=== PATIENT | female | born 1975 | race Caucasian/White ===

== ENCOUNTER → 2020-08-13 08:05 | Outpatient (BNVA) | payer BC, SELFPAY | PROVIDERS: Family Provider Family Medicine; PCP Family Medicine; Referring Provider Dermatology; Visit Provider Dermatology | DX: D48.5 Neoplasm of uncertain behavior of skin (principal); L82.1 Other seborrheic keratosis; R20.2 Paresthesia of skin; B07.8 Other viral warts; D48.9 Neoplasm of uncertain behavior, unspecified | CPT/HCPCS: 11102; 17110; 88304; 99203 ==

== ENCOUNTER → 2021-03-07 08:43 | Outpatient (BNVA) | payer BC, SELFPAY | PROVIDERS: Family Provider Family Medicine; PCP Family Medicine; Visit Provider Surgery | DX: E66.01 Morbid (severe) obesity due to excess calories (principal); Z98.84 Bariatric surgery status | CPT/HCPCS: 80053; 80061; 82306; 82607; 82728; 84134; 85025 ==

== ENCOUNTER → 2021-03-10 08:48 | Outpatient (BNVA) | payer BC, SELFPAY | PROVIDERS: Family Provider Family Medicine; PCP Family Medicine; Visit Provider Surgery | DX: E66.01 Morbid (severe) obesity due to excess calories (principal); Z98.84 Bariatric surgery status | CPT/HCPCS: 84425 ==

== ENCOUNTER → 2021-09-25 08:43 | Outpatient (BNVA) | payer BC, SELFPAY | PROVIDERS: Family Provider Family Medicine; PCP Family Medicine; Visit Provider Surgery | DX: E53.8 Deficiency of other specified B group vitamins (principal); E55.9 Vitamin D deficiency, unspecified; Z98.84 Bariatric surgery status | CPT/HCPCS: 80053; 80061; 82306; 82607; 82728; 84134; 85025 ==

== ENCOUNTER → 2022-02-09 08:54 | Outpatient (BNVA) | payer BC, SELFPAY | PROVIDERS: Family Provider Family Medicine; PCP Family Medicine; Visit Provider Nurse Practitioner Family | DX: R53.83 Other fatigue (principal); N91.2 Amenorrhea, unspecified; F41.9 Anxiety disorder, unspecified; F32.A Depression, unspecified | CPT/HCPCS: 80053; 83001; 84443; 85025 ==

== ENCOUNTER → 2022-03-25 09:54 | Outpatient (BNVA) | payer BC, SELFPAY | PROVIDERS: Family Provider Family Medicine; PCP Family Medicine; Visit Provider Nurse Practitioner Family | DX: Z98.84 Bariatric surgery status (principal) | CPT/HCPCS: 80053; 80061; 82306; 82607; 82728; 84134; 85025 ==

== ENCOUNTER 2022-04-18 21:19 | Emergency (ER) | payer BC, SELFPAY ==
[2022-04-18 21:20] VITALS: BP 133/95; PULSE 83; RESP 18; TEMP 36.8; O2SAT 97; BMI 19.1
--- NOTE | 2022-04-18 21:21 | ED_ITS ---
HPI - Chest Pain General: Chief Complaint: Chest Pain Stated Complaint: cp Time Seen by Provider: 04/18/22 21:20 History of Present Illness: Ms. Aguilar is a 46-year-old lady without significant past medical history presents to the emergency department due to chest discomfort. She reports onset of symptoms at rest after she ate a meal. She endorses initially epigastric pain that quickly radiated to pressure around the chest. Mild associated shortness of breath and nausea without vomiting. Also mild associated lightheadedness. Symptoms improved with nitroglycerin and patient was administered aspirin by EMS. Denies history of similar. No history of tobaccoism, hypertension, hyperlipidemia, no early family history of coronary artery disease. No history of bleeding or clotting disorder. No other specific changes in health, exacerbating, or alleviating factors identified. Onset (ago): hour(s) Prior episodes: No Onset: during rest Pain location: substernal Severity: moderate Quality: tightness Associated symptoms: Reports dyspnea and nausea Review of Systems General: Reports: 10 or more systems reviewed and unremarkable except in HPI and below Resp: Reports: dyspnea GI: Reports: nausea PFSH ED PFSH: Medical History Chronic fatigue and malaise Fibromyalgia History of ectopic History of hypothyroidism Menorrhagia with regular cycle Vitamin B12 deficiency Vitamin D deficiency Surgical History History of section (08/10/14) Low transverse section. Performed by Dr. Pedro Stack at [facility] in [place], [place]. History of reversal of tubal ligation (07/2001) Hx of gastric bypass August 2020 Hx of tubal ligation (12/17/99) Status post hysteroscopic polypectomy (03/06/11) Hysteroscopy, D&C, Polypectomy Performed by Dr. Pedro Stack at [facility] in [place], [place]. Family History Mother Hypercholesteremia Family/Other No problems noted. Denies family history of Colon cancer Ovarian cancer Diabetes Breast cancer Hypertension Uterine cancer Thyroid disease Stroke Social History Smoking and tobacco status: former smoker Second hand smoke exposure: No Smoking risk assessment/counseling performed?: No Alcohol intake: never Desire information about alcohol rehabilitation?: No Counseling given: No Desire information about substance/drug rehabilitation?: No Counseling given: No Adopted: No Caregiver/support person: No Lives independently: Yes History of recent travel: No Physical Exam Const: COMMON NORMALS: alert GENERAL APPEARANCE: cooperative and well developed HENMT: COMMON NORMALS: normocephalic and atraumatic HEAD & SCALP: normocephalic and atraumatic Eye: COMMON NORMALS: conjunctivae normal CONJUNCTIVA: Yes conjunctivae normal SCLERA: sclerae normal Neck/C-Spine: COMMON NORMALS: supple GENERAL: Yes trachea midline Resp: COMMON NORMALS: normal respiratory effort, No use of accessory muscles and clear to auscultation bilaterally EFFORT & INSPECTION: Yes able to speak in complete sentences AUSCULTATION: clear to auscultation bilaterally Cardio: COMMON NORMALS: regular rate and regular rhythm RATE: regular rate RHYTHM: regular rhythm GI: COMMON NORMALS: Soft to palpation PALPATION: Yes Soft to palpation and No Tenderness to palpation present (GI) PERCUSSION: normal to percussion Extremity: GENERAL: Yes normal exam except as noted and No edema Neuro: COMMON NORMALS: moves all extremities SENSORIUM/ORIENTATION: Yes alert and No Orientation impaired Psych: COMMON NORMALS: mental status grossly normal and Normal thought process present THOUGHT PROCESS: Normal thought process present Course ED course: - Patient was seen and evaluated by me at bedside - Patient placed on cardiac monitors, IV access obtained - Initial evaluation notable for exam as above - Labs and xrays personally interpreted by me. EKG showing sinus rhythm with no STEMI. -Patient received aspirin prior to arrival. - Labs notable for no leukocytosis, normal hemoglobin. Metabolic panel without acute derangement to explain symptoms. Delta troponin and initial troponin negative. - Imaging notable for no lobar consolidation or pneumothorax - Low risk by heart score. PERC and Wells negative. - Upon serial reexamination after treatment the patient was improved - Based on patient history, evaluation, and testing as interpreted the most likely cause of the patient's condition is chest pain of uncertain etiology - The results of ED evaluation were discussed with the patient including prescriptions and/or symptomatic cares (if applicable) including appropriate and responsible use, followup plan, and return precautions. The patient verbalized understanding and felt safe for discharge. - Patient discharged in satisfactory condition. Note: Click bubbles or prepopulated rodriguez in note writing are used for assistance with data collection and billing and are inherently more limited than narrative and other text portions of this note. Please use narrative for additional clinical history and defer to narrative/free test for any case of contradictory information. If information appears in only free text or click bubble it should be considered present or absent as reported. Please contact note loan underwriter for clarifications of clinical information or contradictory information. MDM is a brief summary, contradictory or erroneous seeming information should be clarified and full note should be reviewed. Vital Signs: Vital signs: Vital Signs Temperature 98.3 F 04/19/22 00:26 Pulse Rate 73 04/19/22 00:26 Respiratory Rate 17 04/19/22 00:26 Blood Pressure 110/69 04/19/22 00:26 Pulse Oximetry 98 04/19/22 00:26 MDM - Chest Pain Medical Decision Making 46-year-old lady without significant cardiac risk factors presenting to the emergency department due to chest pain. Low risk by heart score. Negative ED evaluation. Satisfactory for outpatient management. Medical Records I reviewed the patient's medical records. Lab Data I reviewed the patient's lab results. : 04/18/22 21:42 04/18/22 21:42 Radiology Impressions Chest X-Ray 04/18/22 21:58 IMPRESSION: No acute findings. Laboratory Results WBC 4.7 10^3/uL (4.0-10.0) 04/18/22 21:42 RBC 4.39 10^6/uL (4.1-5.3) 04/18/22 21:42 Hgb 14.1 g/dL (11.5-15.3) 04/18/22 21:42 Hct 40.2 % (37.0-47.0) 04/18/22 21:42 MCV 91.6 fl (81-99) 04/18/22 21:42 MCH 32.1 pg (28.0-34.0) 04/18/22 21:42 MCHC 35.1 g/dL (30.0-36.0) 04/18/22 21:42 RDW 11.9 % (12.1-15.1) L 04/18/22 21:42 Plt Count 222 10^3/cmm (130-400) 04/18/22 21:42 MPV 10.1 fL (7.4-10.4) 04/18/22 21:42 Neut % (Auto) 67.1 % 04/18/22 21:42 Lymph % (Auto) 23.2 % 04/18/22 21:42 [place] % (Auto) 7.6 % 04/18/22 21:42 Eos % (Auto) 1.3 % 04/18/22 21:42 Baso % (Auto) 0.6 % 04/18/22 21:42 Neut # (Auto) 3.18 10^3/uL (1.8-7.7) 04/18/22 21:42 Lymph # (Auto) 1.1 10^3/uL (0.8-4.8) 04/18/22 21:42 [place] # (Auto) 0.4 10^3/uL (0.2-0.9) 04/18/22 21:42 Eos # (Auto) 0.1 10^3/uL (0.0-0.8) 04/18/22 21:42 Baso # (Auto) 0.0 10^3/uL (0.0-0.1) 04/18/22 21:42 Nucleated RBC % (auto) 0 % 04/18/22 21:42 Nucleated RBCs # 0.0 /100WBC 04/18/22 21:42 Sodium 137 mmol/L (136-145) 04/18/22 21:42 Potassium 3.4 mmol/L (3.5-5.1) L 04/18/22 21:42 Chloride 102 mmol/L (98-107) 04/18/22 21:42 Carbon Dioxide 23 mmol/L (22-29) 04/18/22 21:42 Anion Gap 15.4 (5-19) 04/18/22 21:42 BUN 15 mg/dL (6-20) 04/18/22 21:42 Creatinine 0.5 mg/dL (0.5-0.9) 04/18/22 21:42 GFR Calculation 133.4 mL/min (90-130) H 04/18/22 21:42 Glucose 113 mg/dL (65-115) 04/18/22 21:42 Calculated Osmolality 286 mOsm/kg (285-295) 04/18/22 21:42 Calcium 9.2 mg/dL (8.5-10.5) 04/18/22 21:42 Total Bilirubin 0.5 mg/dL (0.15-1.2) 04/18/22 21:42 AST 13 U/L (0-32) 04/18/22 21:42 ALT 13 U/L (0-33) 04/18/22 21:42 Alkaline Phosphatase 53 IU/L (35-105) 04/18/22 21:42 Troponin T Baseline 6 ng/L (0-10) 04/18/22 21:42 Troponin T 120 Minute 6.00 ng/L (0-10) 04/18/22 23:27 Delta Troponin T Not Reportable 04/18/22 23:27 Total Protein 7.1 g/dL (6.6-8.7) 04/18/22 21:42 Albumin 4.5 g/dL (3.5-5.2) 04/18/22 21:42 Globulin 2.6 g/dL (1.3-4.6) 04/18/22 21:42 Lipase 14 U/L (13-60) 04/18/22 21:42 Discharge Plan Discharge Patient Disposition: Home Clinical Impression: Chest pain Condition: Stable Prescriptions: No Action multivitamin Tablet 1 tab PO DAILY 0RF calcium citrate 1,000 mg tablet 1,000 mg PO DAILY 0RF cyanocobalamin (vitamin B-12) 1,000 mcg capsule 1,000 mcg PO DAILY 0RF topiramate [Topamax] 100 mg tablet 100 mg PO BID Qty: 60 5RF rizatriptan [Maxalt] 10 mg tablet See Rx Instructions PO .COMPLEX Qty: 10 5RF Rx Instructions: take 1 tab at onset of headache; if no relief may repeat 1 tab after at least 2 hrs; max = 3 tabs/24 hr PO escitalopram oxalate [Lexapro] 10 mg tablet 10 mg PO DAILY Qty: 30 5RF bupropion HCl 300 mg tablet extended release 24 hr 300 mg PO QAM Qty: 30 5RF Discharge Orders: Discharge ED (Routine); Ordered 04/19/22 Ordered By: Perez Zelaya Referrals: Nguyen Schofield MD [Physician] - Discharge Diet: Usual diet Discharge Activity: Resume usual activity Patient Instructions: Chest Pain (ED) Activity Restrictions/Additional Instructions: Thank you for visiting the emergency department. You were seen and evaluated for chest pain. The exact cause of your symptoms is unclear. As discussed you are low risk by heart score and therefore outpatient follow-up is appropriate. I will message case management for follow-up with cardiology for consideration of additional testing. Please return to the emergency department for worsening symptoms or anything else that you are concerned about and feel needs emergency department evaluation. Coding Level of Care Code ED Heading Machine Operator for Bee Fwd Exam Comprehensive
--- NOTE | 2022-04-18 21:58 | XRR_ITS ---
PROCEDURE INFORMATION: Exam: XR Chest Exam date and time: 04/18/2022 10:21 PM Age: 46 years old Clinical indication: Pain; Dyspnea; Chest pressure; Additional info: Chest pain TECHNIQUE: Imaging protocol: XR of the chest. Views: 1 view. COMPARISON: CT Cervical Spine wo* [id number] 06/13/2018 10:46 AM FINDINGS: Lungs: Unremarkable. No consolidation. Pleural spaces: Unremarkable. No pleural effusion. No pneumothorax. Heart/Mediastinum: Unremarkable. No cardiomegaly. Bones/joints: Unremarkable. XR/XR chest 1V portable [id number] IMPRESSION: No acute findings.
--- NOTE | 2022-04-18 21:58 | ECG_ITS ---
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 Measurements Intervals [place] Rate: 82 P: 69 GA: 150 QRS: 44 QRSD: 78 T: 49 QT: 384 QTc: 451 Interpretive Statements SINUS RHYTHM POSSIBLE LEFT ATRIAL ENLARGEMENT [-0.1mV P-WAVE IN V1/V2] No previous ECG available for comparison Electronically Signed On 04-19-2022 12:12:45 CDT by Aryan Vega M.D. [email or web address] [email or web address].Segmint/store/[id number] f
[2022-04-18 22:00] VITALS: BP 119/80; PULSE 67; RESP 17; O2SAT 98
[2022-04-18 22:06] LABS: Basophils % 0.6 %; Eosinophils # 0.1 10^3/uL (0.0-0.8); Eosinophils % 1.3 %; Hematocrit 40.2 % (37.0-47.0); Hemoglobin 14.1 g/dL (11.5-15.3); Lymphocytes # 1.1 10^3/uL (0.8-4.8); Lymphocytes % 23.2 %; Mean Corpuscular HGB Conc 35.1 g/dL (30.0-36.0); Mean Corpuscular Hemoglobin 32.1 pg (28.0-34.0); Mean Corpuscular Volume 91.6 fl (81-99); Mean Platelet Volume 10.1 fL (7.4-10.4); Monocytes # 0.4 10^3/uL (0.2-0.9); Monocytes % 7.6 %; Neutrophils # 3.18 10^3/uL (1.8-7.7); Neutrophils % 67.1 %; Nucleated Red Blood Cells % 0 %; Platelet Count 222 10^3/cmm (130-400); Red Blood Count 4.39 10^6/uL (4.1-5.3); Red Cell Distribution Width 11.9 % (12.1-15.1); White Blood Count 4.7 10^3/uL (4.0-10.0)
[2022-04-18 22:17] LABS: Alanine Aminotransferase 13 U/L (0-33); Albumin Level 4.5 g/dL (3.5-5.2); Alkaline Phosphatase 53 IU/L (35-105); Anion Gap 15.4 (5-19); Aspartate Amino Transferase 13 U/L (0-32); Blood Urea Nitrogen 15 mg/dL (6-20); Calcium 9.2 mg/dL (8.5-10.5); Carbon Dioxide 23 mmol/L (22-29); Chloride 102 mmol/L (98-107); Globulin 2.6 g/dL (1.3-4.6); Glomerular Filtration Rate 133.4 mL/min (90-130); Glucose 113 mg/dL (65-115); Lipase 14 U/L (13-60); Osmolality Calculated 286 mOsm/kg (285-295); Potassium 3.4 mmol/L (3.5-5.1); Sodium 137 mmol/L (136-145); Total Bilirubin 0.5 mg/dL (0.15-1.2); Total Protein 7.1 g/dL (6.6-8.7)
[2022-04-18 22:18] LABS: Troponin(5th) Baseline 6 ng/L (0-10)
--- NOTE | 2022-04-18 23:58 | ECG_ITS ---
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 Measurements Intervals [place] Rate: 71 P: 79 MA: 149 QRS: 46 QRSD: 77 T: 40 QT: 415 QTc: 452 Interpretive Statements SINUS RHYTHM POSSIBLE LEFT ATRIAL ENLARGEMENT [-0.1mV P-WAVE IN V1/V2] Compared to ECG 04/18/2022 21:27:37 No significant changes Electronically Signed On 04-19-2022 12:14:15 CDT by Aryan Vega M.D. [id number]
[2022-04-19] VITALS: BP 110/69; PULSE 73; RESP 17; TEMP 36.8; O2SAT 98
[2022-04-19 00:26] VITALS: BP 110/69; PULSE 73; RESP 17; TEMP 36.8; O2SAT 98
--- NOTE | 2022-04-23 06:44 | DCPLANNER ---
Addendum entered by Leandra Graham 07/02/22 11:07: Patient had a follow up appointment scheduled with [facility] - patient did attend appointment. Addendum entered by Leandra Graham 04/26/22 09:37: Patient has a follow up appointment scheduled for Wednesday, June 22, 2022 at 2:[address] Vega. Clinic will call patient with appointment information. Original Note: performing arts road manager had message to schedule a followup appointment for patient with cardiology. performing arts road manager sent patients information to the front office staff at [facility]. Patients information will be printed and reviewed. Clinic will call patient with appointment information.
== END 2022-04-19 00:28 | disposition home or self-care (01) ==
PROVIDERS: Emergency Provider Emergency Medicine
DX: R07.9 Chest pain, unspecified (principal); Z87.891 Personal history of nicotine dependence
CPT/HCPCS: 71045; 80053; 83690; 84484; 85025; 93005; 99284

== ENCOUNTER 2022-07-30 01:02 | Emergency (ER) | payer BC, SELFPAY ==
[2022-07-30] VITALS (10 sets, daily range): BP systolic 116–151; BP diastolic 78–89; PULSE 91–110; RESP 13–18; TEMP 36.6–37.1; O2SAT 93–100
--- NOTE | 2022-07-30 01:11 | CTR_ITS ---
PROCEDURE INFORMATION: Exam: CT Abdomen And Pelvis With Contrast Exam date and time: 07/30/2022 1:26 AM Age: 46 years old Clinical indication: Abdominal pain; Localized; Right upper quadrant (ruq); Prior surgery; Surgery type: Gastric bypass. Tubal ligation. Csection; Patient HX: C/O ruq/epigastric pain; Additional info: Abd pain TECHNIQUE: Imaging protocol: Computed tomography of the abdomen and pelvis with contrast. Radiation optimization: All CT scans at this facility use at least one of these dose optimization techniques: automated exposure control; mA and/or kV adjustment per patient size (includes targeted exams where dose is matched to clinical indication); or iterative reconstruction. Contrast material: OMNI 350; Contrast volume: 80 ml; Contrast route: INTRAVENOUS (IV); COMPARISON: ES Gynecology Scope Images 04/05/2018 5:45 AM RADIATION DOSE METRICS: Total DLP (mGy-cm): 329.21 FINDINGS: Lungs: No consolidation in the visualized lung bases. Liver: The liver is enlarged, measuring 23.6 cm in length at the mid axillary line. There is periportal edema. Gallbladder and bile ducts: There is a hydropic, distended gallbladder measuring 11.5 cm in the craniocaudal plane by 3.9 cm transversely by 4.7 cm in anteroposterior dimension. The common bile duct is mildly distended to 8.5 mm and contains a proximal filling defect, proximally 6 mm in diameter (series 3, images 28 and 47; series 5, image 17). There is pericholecystic fluid. There are faintly visualized stones near the gallbladder neck (series 3, image 51). Pancreas: Normal in size and homogeneous enhancement. No ductal dilation. Spleen: Normal. No splenomegaly. Adrenal glands: Normal. No mass. Kidneys and ureters: There is no hydronephrosis. No renal or obstructing ureteral calculi. Stomach and bowel: There has been gastric bypass surgery. There is no evidence of small bowel or colonic obstruction. There is moderate fecal burden in the ascending and transverse colon. Appendix: The appendix is not identified. Intraperitoneal space: No free air. No significant fluid collection. Vasculature: There is a prominent left gonadal vein. Lymph nodes: No enlarged retroperitoneal or mesenteric lymph nodes. Urinary bladder: The urinary bladder is mostly decompressed and is clear calcific opacities. Reproductive: Unremarkable as visualized. Bones/joints: At L5-S1, there is degenerative disc disease and vacuum disc. There is mild broad-based disc protrusion. No severe spinal stenosis. Soft tissues: Normal. CT/CT abdomen pelvis w con* [id number] IMPRESSION: 1. Cholelithiasis and choledocholithiasis with mild dilatation of the common bile duct. 2. There is a small amount of pericholecystic fluid that may or may not reflect acute cholecystitis. Correlation with ultrasound may be helpful if clinically indicated. Choledocholithiasis is better visualized by MRCP, if clinically indicated. 3. Hepatomegaly and periportal edema as may be seen in inflammatory processes of the liver or in aggressive hydration of the patient. 4. Status post gastric bypass surgery. 5. Prominent left gonadal vein. This may be seen in pelvic congestion syndrome. Clinical correlation is necessary. 6. Additional non emergent findings as above. Findings were discussed with PAUL ZARAGOZA at 07/30/2022 3:31 AM CDT.
--- NOTE | 2022-07-30 01:13 | W.ED.ABDPA2 ---
Documented by User: Paul Zaragoza MD 07/30/22 05:02 HPI - Abdominal Pain General: Chief Complaint: Abdominal Pain Stated Complaint: ABD Pain Time Seen by Provider: 07/30/22 01:04 Source: patient Mode of arrival: ambulatory Limitations: no limitations History of Present Illness: 46-year-old female has a history of gastric bypass surgery 2 years ago states that starting yesterday she is having right upper quadrant abdominal pain is worsened throughout the day states it was got severe tonight was a 7 out of 10 she denies any worsening improving factors she has had some nausea denies any vomiting or diarrhea denies any constipation denies any fevers. Associated Symptoms: Reports nausea; Denies chills, dysuria and fever(s) Review of Systems Const: Denies: fever(s), chills, body aches or change in appetite Eyes: Denies: blurry vision or eye discomfort ENMT: Denies: throat pain or dental pain Card: Denies: chest pain Resp: Denies: dyspnea GI: Reports: abdominal pain and nausea : Denies: dysuria Musc: Denies: neck pain or back pain Skin/Breast: Denies: rash Neuro: Denies: headache(s) Psych: Denies: depression Rodney/Lymph: Denies: easy bruising All/Imm: Denies: urticaria PFSH ED PFSH: Medical History Chronic fatigue and malaise Fibromyalgia History of ectopic History of hypothyroidism Menorrhagia with regular cycle Vitamin B12 deficiency Vitamin D deficiency Surgical History History of section (08/10/14) Low transverse section. Performed by Dr. Pedro Stack at [facility] in [place], [place]. History of reversal of tubal ligation (07/2001) Hx of gastric bypass August 2020 Hx of tubal ligation (12/17/99) Status post hysteroscopic polypectomy (03/06/11) Hysteroscopy, D&C, Polypectomy Performed by Dr. Pedro Stack at [facility] in [place], [place]. Family History Mother Hypercholesteremia Family/Other No problems noted. Denies family history of Colon cancer Ovarian cancer Diabetes Breast cancer Hypertension Uterine cancer Thyroid disease Stroke Social History Smoking and tobacco status: former smoker Second hand smoke exposure: No Smoking risk assessment/counseling performed?: No Alcohol intake: never Desire information about alcohol rehabilitation?: No Counseling given: No Desire information about substance/drug rehabilitation?: No Counseling given: No Adopted: No Caregiver/support person: No Lives independently: Yes History of recent travel: No Physical Exam Const: COMMON NORMALS: no acute distress, patient oriented x3 and healthy appearing HENMT: COMMON NORMALS: normocephalic and atraumatic HEAD & SCALP: normocephalic and atraumatic Eye: COMMON NORMALS: Equal, round and reactive pupils present and EOMs intact bilaterally PUPIL: Yes Equal, round and reactive pupils present Neck/C-Spine: COMMON NORMALS: full ROM and supple Chest: COMMONS NORMALS: normal inspection of the chest and normal palpation of entire chest wall Resp: COMMON NORMALS: normal respiratory effort, No retractions, No use of accessory muscles and clear to auscultation bilaterally AUSCULTATION: clear to auscultation bilaterally Cardio: COMMON NORMALS: regular rate, regular rhythm and No murmurs present (Cardio) RATE: regular rate RHYTHM: regular rhythm GI: COMMON NORMALS: Normal to inspection, nondistended, normoactive bowel sounds present, Soft to palpation and no masses PALPATION: Yes Soft to palpation and Yes Tenderness to palpation present (GI) Details: RUQ Extremity: COMMON NORMALS: normal to inspection and full ROM Neuro: COMMON NORMALS: patient oriented x3, moves all extremities and no focal motor deficits Psych: COMMON NORMALS: mental status grossly normal, Normal thought process present and cooperative THOUGHT PROCESS: Normal thought process present Skin: COMMON NORMALS: no rashes or lesions noted and no wounds GENERAL SKIN EXAM: no rashes or lesions noted Course Vital Signs: Vital signs: Vital Signs Temperature 98.7 F 07/30/22 06:00 Pulse Rate 95 07/30/22 13:07 Respiratory Rate 14 07/30/22 13:07 Blood Pressure 151/89 07/30/22 13:07 Pulse Oximetry 98 07/30/22 13:07 Oxygen Delivery Me thod 07/30/22 13:07 MDM - Abdominal Pain Medical Decision Making Patient presents here with abdominal pain CT and ultrasound shows possible cholecystitis with possible choledocholithiasis she does have elevated liver enzymes along with slightly elevated bilirubiN will ge an MRCP Lab Data : 07/30/22 01:10 07/30/22 01:10 Labs/Radiology: Radiology Impressions Abdomen/Pelvis CT 07/30/22 01:11 IMPRESSION: 1. Cholelithiasis and choledocholithiasis with mild dilatation of the common bile duct. 2. There is a small amount of pericholecystic fluid that may or may not reflect acute cholecystitis. Correlation with ultrasound may be helpful if clinically indicated. Choledocholithiasis is better visualized by MRCP, if clinically indicated. 3. Hepatomegaly and periportal edema as may be seen in inflammatory processes of the liver or in aggressive hydration of the patient. 4. Status post gastric bypass surgery. 5. Prominent left gonadal vein. This may be seen in pelvic congestion syndrome. Clinical correlation is necessary. 6. Additional non emergent findings as above. Findings were discussed with PAUL ZARAGOZA at 07/30/2022 3:31 AM CDT. Gallbladder Ultrasound 07/30/22 01:59 IMPRESSION: 1. Thick sludge and probable noncalcified stones layering in the gallbladder with minimal thickening of the gallbladder wall and a positive Chiang's sign. These findings may reflect acute cholecystitis and/or choledocholithiasis, given the findings on the comparison CT scan of the abdomen pelvis. MRCP may be helpful if clinically indicated for better visualization of the common bile duct. 2. Hepatomegaly. Cholangiopancreatography MRI 07/30/22 05:01 Impression: Some images including MRCP images are degraded due to motion and breathing artifact. 1. 6 mm calculus in the common bile duct also seen on the recent CT. Tapering of the common bile duct distally at the pancreatic head. 2. Above-described findings suspicious for acute cholecystitis with gallbladder wall thickening and pericholecystic fluid. Cholelithiasis with gallbladder sludge. 3. Mild intrahepatic biliary duct dilatation. Periportal edema. 4. Hepatomegaly and splenomegaly. Laboratory Results WBC 5.6 10^3/uL (4.0-10.0) 07/30/22 01:10 RBC 4.22 10^6/uL (4.1-5.3) 07/30/22 01:10 Hgb 13.3 g/dL (11.5-15.3) 07/30/22 01:10 Hct 40.3 % (37.0-47.0) 07/30/22 01:10 MCV 95.5 fl (81-99) 07/30/22 01:10 MCH 31.5 pg (28.0-34.0) 07/30/22 01:10 MCHC 33.0 g/dL (30.0-36.0) 07/30/22 01:10 RDW 12.3 % (12.1-15.1) 07/30/22 01:10 Plt Count 169 10^3/cmm (130-400) 07/30/22 01:10 MPV 10.0 fL (7.4-10.4) 07/30/22 01:10 Neut % (Auto) 83.0 % 07/30/22 01:10 Lymph % (Auto) 7.7 % 07/30/22 01:10 [place] % (Auto) 8.4 % 07/30/22 01:10 Eos % (Auto) 0.5 % 07/30/22 01:10 Baso % (Auto) 0.4 % 07/30/22 01:10 Neut # (Auto) 4.63 10^3/uL (1.8-7.7) 07/30/22 01:10 Lymph # (Auto) 0.4 10^3/uL (0.8-4.8) L 07/30/22 01:10 [place] # (Auto) 0.5 10^3/uL (0.2-0.9) 07/30/22 01:10 Eos # (Auto) 0.0 10^3/uL (0.0-0.8) 07/30/22 01:10 Baso # (Auto) 0.0 10^3/uL (0.0-0.1) 07/30/22 01:10 Nucleated RBC % (auto) 0 % 07/30/22 01:10 Nucleated RBCs # 0.0 /100WBC 07/30/22 01:10 Sodium 136 mmol/L (136-145) 07/30/22 01:10 Potassium 3.5 mmol/L (3.5-5.1) 07/30/22 01:10 Chloride 98 mmol/L (98-107) 07/30/22 01:10 Carbon Dioxide 29 mmol/L (22-29) 07/30/22 01:10 Anion Gap 12.5 (5-19) 07/30/22 01:10 BUN 17 mg/dL (6-20) 07/30/22 01:10 Creatinine 0.5 mg/dL (0.5-0.9) 07/30/22 01:10 GFR Calculation 133.4 mL/min (90-130) H 07/30/22 01:10 Glucose 110 mg/dL (65-115) 07/30/22 01:10 Calculated Osmolality 284 mOsm/kg (285-295) L 07/30/22 01:10 Calcium 9.0 mg/dL (8.5-10.5) 07/30/22 01:10 Total Bilirubin 1.3 mg/dL (0.15-1.2) H 07/30/22 01:10 AST 364 U/L (0-32) H 07/30/22 01:10 ALT 356 U/L (0-33) H 07/30/22 01:10 Alkaline Phosphatase 374 U/L (35-105) H 07/30/22 01:10 Total Protein 7.3 g/dL (6.6-8.7) 07/30/22 01:10 Albumin 3.9 g/dL (3.5-5.2) 07/30/22 01:10 Globulin 3.4 g/dL (1.3-4.6) 07/30/22 01:10 Lipase 16 U/L (13-60) 07/30/22 01:10 Urine Color Yellow (Yellow) 07/30/22 01:41 Urine Appearance Clear (CLEAR) 07/30/22 01:41 Urine pH 6 (5-7) 07/30/22 01:41 Ur Specific [place] 1.010 (1.005-1.030) 07/30/22 01:41 Urine Protein Neg (Negative) 07/30/22 01:41 Urine Glucose (UA) Norm (Normal) 07/30/22 01:41 Urine Ketones 1+ (Negative) H 07/30/22 01:41 Urine Blood Neg (Negative) 07/30/22 01:41 Urine Nitrate Negative (Negative) 07/30/22 01:41 Urine Bilirubin 1+ (Negative) H 07/30/22 01:41 Urine Urobilinogen 8 mg/dL (Negative) H 07/30/22 01:41 Ur Leukocyte Esterase Negative (Negative) 07/30/22 01:41 Discharge Plan Discharge Patient Disposition: Xfer Short-Term Hosp Clinical Impression: Choledocholithiasis Condition: Stable Coding Level of Care Code ED Cut Out Marker for Chg Fwd Exam Comprehensive Documented by User: Perez Zelaya MD 07/30/22 13:34 HPI - Abdominal Pain General: Chief Complaint: Abdominal Pain Stated Complaint: ABD Pain Time Seen by Provider: 07/30/22 01:04 PFSH ED PFSH: Medical History Chronic fatigue and malaise Fibromyalgia History of ectopic History of hypothyroidism Menorrhagia with regular cycle Vitamin B12 deficiency Vitamin D deficiency Surgical History History of section (08/10/14) Low transverse section. Performed by Dr. Pedro Stack at [facility] in [place], [place]. History of reversal of tubal ligation (07/2001) Hx of gastric bypass August 2020 Hx of tubal ligation (12/17/99) Status post hysteroscopic polypectomy (03/06/11) Hysteroscopy, D&C, Polypectomy Performed by Dr. Pedro Stack at [facility] in [place], [place]. Family History Mother Hypercholesteremia Family/Other No problems noted. Denies family history of Colon cancer Ovarian cancer Diabetes Breast cancer Hypertension Uterine cancer Thyroid disease Stroke Social History Smoking and tobacco status: former smoker Second hand smoke exposure: No Smoking risk assessment/counseling performed?: No Alcohol intake: never Desire information about alcohol rehabilitation?: No Counseling given: No Desire information about substance/drug rehabilitation?: No Counseling given: No Adopted: No Caregiver/support person: No Lives independently: Yes History of recent travel: No Course Vital Signs: Vital signs: Vital Signs Temperature 98.7 F 07/30/22 06:00 Pulse Rate 95 07/30/22 13:07 Respiratory Rate 14 07/30/22 13:07 Blood Pressure 151/89 07/30/22 13:07 Pulse Oximetry 98 07/30/22 13:07 Oxygen Delivery Me thod 07/30/22 13:07 MDM - Abdominal Pain Medical Decision Making Patient presents here with abdominal pain CT and ultrasound shows possible cholecystitis with possible choledocholithiasis she does have elevated liver enzymes along with slightly elevated bilirubiN will ge an MRCP Patient care handoff received from Dr. Zaragoza pending completion of ED evaluation. Laboratory studies reviewed and imaging reviewed. MRCP notable for choledocholithiasis and cholecystitis. Patient received Zosyn. Discussed results of ED evaluation with the patient including need for transfer as we do not perform ERCP let alone ERCP on somebody who has had Jonny-en-Y. Jonny-en-Y was performed at [facility] in [facility]. Attempted to call various facilities for transfer however options limited secondary to procedure availability or bed availability. Ultimately patient accepted by Dr. Mancia at [facility] in [place]. Patient agreeable with plan for transfer. Left emergency department in satisfactory condition by EMS. Given distance as well as overall clinical picture with evidence of active stress on end organs and evidence of cholecystitis patient requires expeditious transfer. Perez Zelaya MD Emergency Medicine Lab Data : 07/30/22 01:10 07/30/22 01:10 Labs/Radiology: Radiology Impressions Abdomen/Pelvis CT 07/30/22 01:11 IMPRESSION: 1. Cholelithiasis and choledocholithiasis with mild dilatation of the common bile duct. 2. There is a small amount of pericholecystic fluid that may or may not reflect acute cholecystitis. Correlation with ultrasound may be helpful if clinically indicated. Choledocholithiasis is better visualized by MRCP, if clinically indicated. 3. Hepatomegaly and periportal edema as may be seen in inflammatory processes of the liver or in aggressive hydration of the patient. 4. Status post gastric bypass surgery. 5. Prominent left gonadal vein. This may be seen in pelvic congestion syndrome. Clinical correlation is necessary. 6. Additional non emergent findings as above. Findings were discussed with PAUL ZARAGOZA at 07/30/2022 3:31 AM CDT. Gallbladder Ultrasound 07/30/22 01:59
[2022-07-30 01:17] LABS: Basophils % 0.4 %; Eosinophils % 0.5 %; Hematocrit 40.3 % (37.0-47.0); Hemoglobin 13.3 g/dL (11.5-15.3); Lymphocytes # 0.4 10^3/uL (0.8-4.8); Lymphocytes % 7.7 %; Mean Corpuscular Hemoglobin 31.5 pg (28.0-34.0); Mean Corpuscular Volume 95.5 fl (81-99); Monocytes # 0.5 10^3/uL (0.2-0.9); Monocytes % 8.4 %; Neutrophils # 4.63 10^3/uL (1.8-7.7); Nucleated Red Blood Cells % 0 %; Platelet Count 169 10^3/cmm (130-400); Red Blood Count 4.22 10^6/uL (4.1-5.3); Red Cell Distribution Width 12.3 % (12.1-15.1); White Blood Count 5.6 10^3/uL (4.0-10.0)
[2022-07-30] MEDS: sodium chloride 0.9% 1,000 ML 999 ML IV (01:19)
[2022-07-30] MEDS: HYDROmorphone 1 mg/mL INJ 1 mL IVP (01:19)
[2022-07-30] MEDS: ondansetron 2 mg/ML SDV 2 mL 4 MG IVP (01:19)
[2022-07-30] MEDS: iohexol 350 mg/mL 100 mL Btl IV (01:29)
[2022-07-30 01:39] LABS: Alanine Aminotransferase 356 U/L (0-33); Albumin Level 3.9 g/dL (3.5-5.2); Alkaline Phosphatase 374 U/L (35-105); Anion Gap 12.5 (5-19); Aspartate Amino Transferase 364 U/L (0-32); Blood Urea Nitrogen 17 mg/dL (6-20); Carbon Dioxide 29 mmol/L (22-29); Chloride 98 mmol/L (98-107); Globulin 3.4 g/dL (1.3-4.6); Glomerular Filtration Rate 133.4 mL/min (90-130); Glucose 110 mg/dL (65-115); Lipase 16 U/L (13-60); Osmolality Calculated 284 mOsm/kg (285-295); Potassium 3.5 mmol/L (3.5-5.1); Sodium 136 mmol/L (136-145); Total Bilirubin 1.3 mg/dL (0.15-1.2); Total Protein 7.3 g/dL (6.6-8.7)
[2022-07-30 01:50] LABS: Add Urine Microscopic? NO; Charge for UA Resulting for Rev
--- NOTE | 2022-07-30 01:59 | USR_ITS ---
PROCEDURE INFORMATION: Exam: US Abdomen, Limited; Right Upper Quadrant Exam date and time: 07/30/2022 2:49 AM Age: 46 years old Clinical indication: Abdominal pain; Acute; Prior surgery; Surgery date: 6+ months; Surgery type: Gastric bypass 2018; Additional info: Abd pain TECHNIQUE: Imaging protocol: Real time ultrasound of the abdomen with image documentation. Limited exam focused on the right upper quadrant. COMPARISON: CT abdomen pelvis w con* [id number] 07/30/2022 1:26 AM FINDINGS: Liver: The liver is enlarged, measuring 18.6 cm in length. It shows prominent hepatic veins and IVC that reflects the hydration status of the patient.. Gallbladder: There is thick sludge the contains small, nonshadowing gallstones. The gallbladder wall thickness is 4 mm. Pericholecystic fluid is not visualized on this examination. The higher education administrator reports a positive Chiang's sign. Biliary ducts: The common bile duct measures up to 10 mm in sections, dilated. The common bile duct stone seen on CT is not demonstrated sonographically. Pancreas: The pancreas appears normal where seen. Right kidney: The right kidney measures 12.1 x 4.1 x 5.4 cm. There is no hydronephrosis or shadowing calculi.. US/US gall bladder [id number] IMPRESSION: 1. Thick sludge and probable noncalcified stones layering in the gallbladder with minimal thickening of the gallbladder wall and a positive Chiang's sign. These findings may reflect acute cholecystitis and/or choledocholithiasis, given the findings on the comparison CT scan of the abdomen pelvis. MRCP may be helpful if clinically indicated for better visualization of the common bile duct. 2. Hepatomegaly.
[2022-07-30 02:01] LABS: Blood Urine Neg (Negative); Glucose Urine UA Norm (Normal); Ketones Urine 1+ (Negative); Protein Urine Neg (Negative); Urine Appearance Clear (CLEAR); Urine Color Yellow (Yellow); pH Urine 6 (5-7)
[2022-07-30 02:02] LABS: Bilirubin Urine 1+ (Negative); Leukocyte Esterase Urine Negative (Negative); Nitrate Urine Negative (Negative); Urobilinogen Urine 8 mg/dL (Negative)
[2022-07-30] MEDS: piperacillin-tazobactam 3.375 GM in sodium chloride 0.9% (plus) 50 ML IV (03:32)
--- NOTE | 2022-07-30 05:01 | MR_ITS ---
WS: [id number] MRI/MRCP OF THE ABDOMEN WITHOUT GADOLINIUM ENHANCEMENT TECHNIQUE: Thin and thick slab MRCP, Axial T2, Coronal MRCP, Axial Dual Echo, and Axial 2-D Fiesta imaging was obtained. Coronal 2-D Fiesta imaging. CLINICAL INFORMATION: abdpain COMPARISON: Ultrasound July 30, 2022 FINDINGS: Images are degraded due to motion and breathing artifact. 6 mm calculus in the common bile duct also seen on the recent CT consistent with choledocholithiasis. Common bile duct appears to taper normally distally at the pancreatic head. Fluid distended gallblad suhas. Pericholecystic fluid about the gallbladder. Cholelithiasis with gallbladder sludge. Findings zimmer spicious for cholecystitis. Mild intrahepatic biliary ductal dilatation and periportal edema. Hepatom egaly with enlargement of the RIGHT hepatic lobe. Pancreas appears normal. No hydronephrosis in either kidney. Splenomegaly. Spleen measures 13.0 cm po le-to-pole. Adrenal glands are normal. MR/MR MRCP [id number] Impression: Some images including MRCP images are degraded due to motion and br eathing artifact. 1. 6 mm calculus in the common bile duct also seen on the recent CT. Tapering of the common bile duct distally at the pancreatic head. 2. Above-described findings suspicious for acute cholecystitis with gallbladde r wall thickening and pericholecystic fluid. Cholelithiasis with gallbladder sl udge. 3. Mild intrahepatic biliary duct dilatation. Periportal edema. 4. Hepatomegaly and splenomegaly.
--- NOTE | 2022-07-30 06:34 | PC.NURSE ---
Pt sitting up in bed. Denies pain at this time. Resting comfortably. No needs at this time.
== END 2022-07-30 13:36 | disposition short-term general hospital (02) ==
PROVIDERS: Emergency Medicine; Emergency Provider Emergency Medicine
DX: K80.50 Calculus of bile duct without cholangitis or cholecystitis without obstruction (principal); Z87.891 Personal history of nicotine dependence
CPT/HCPCS: 74177; 74181; 76705; 80053; 81003; 83690; 85025; 96365; 96375; 99285; J1170; J2405; J2543; J7030; Q9967

== ENCOUNTER 2022-08-20 11:50 | Emergency (ER) | payer BC, SELFPAY ==
[2022-08-20 11:58] VITALS: BP 126/83; PULSE 84; RESP 22; TEMP 36.7; O2SAT 94; BMI 18.8
--- NOTE | 2022-08-20 12:13 | CT_ITS ---
WS: [id number] CT ABDOMEN PELVIS TECHNIQUE: Contrast-enhanced CT of the abdomen and pelvis with coronal and sagittal reformatted image s. CLINICAL INFORMATION: abd pain COMPARISON: CT July 30, 2022 DLP: 316.[address] scans at [facility] use at least one of these dose optimization techniques: automated e xposure control; mA and/or kV adjustment per patient size (includes targeted exams where dose is matc hed to clinical indication); or iterative reconstruction. FINDINGS: Dense sigmoid constipation. Pancolonic constipation. Fluid distended small bowel loops with air-fluid levels may be due to postoperative ileus. Prior postoperative changes gastric bypass surgery. Diffuse fatty infiltration of the liver. Portal v ein and splenic vein are patent. Hepatomegaly and Splenomegaly. Lung bases are well aerated. Pancreas appears normal. Interval cholecystectomy. Small amount of fluid in the gallbladder fossa compatible with recent postoperative change. Normal caliber abdominal aorta. Celiac and SMA are patent. Adrenal glands are normal. Normal renal parenchymal enhancement. No hydronephrosis. Common bile duct tapers normally at the pancreatic head. Prominent peripelvic renal pelvis bilaterally. Adrenal glands are normal. Disc space narrowing L5-S1. Urine distended bladder. Small amount of free fluid in the p nahomi. Hysterectomy. CT/CT abdomen pelvis w con* [id number] IMPRESSION: 1. Interval postoperative changes cholecystectomy. Expected postoperative irving ges with a small amount of fluid in the gallbladder fossa. 2. Common bile duct appears to taper normally distally. 3. Hepatomegaly with splenomegaly. 4. No hydronephrosis in either kidney. 5. Urine distended bladder with small amount of free fluid in the pelvis. 6. Moderate sigmoid and pancolonic constipation. A few air-fluid levels in sma ll bowel likely due to postoperative ileus 7. Prior gastric bypass surgery. 8. No other acute appearing findings.
[2022-08-20 12:28] VITALS: BP 131/95; PULSE 84; RESP 18; O2SAT 100
[2022-08-20] MEDS: ondansetron 2 mg/ML SDV 2 mL 4 MG IVP (12:35)
[2022-08-20] MEDS: sodium chloride 0.9% 1,000 ML 999 ML IV (12:37)
--- NOTE | 2022-08-20 12:45 | ED_ITS ---
HPI - Abdominal Pain General: Chief Complaint: Abdominal Pain Stated Complaint: abdomen pain Time Seen by Provider: 08/20/22 12:12 Source: patient and EMS Mode of arrival: EMS Limitations: no limitations History of Present Illness: 46-year-old female is had a history of gastric bypass years ago she did recently had been transferred to [place] she had choledocholithiasis she had extensive procedure and was there for 11 days did have an ERCP along with a cholecystectomy states she has been out of the hospital for about 10 days states today started having some sharp abdominal pains with diarrhea. States the pain is currently 3 out of 10 denies any vomiting denies any worsening improving factors. Associated Symptoms: Denies chills, diarrhea, dysuria, fever(s), nausea and vomiting Review of Systems Const: Denies: fever(s), chills, body aches or change in appetite Eyes: Denies: blurry vision or eye discomfort ENMT: Denies: throat pain or dental pain Card: Denies: chest pain Resp: Denies: dyspnea GI: Reports: abdominal pain; Denies: nausea, vomiting or diarrhea : Denies: dysuria Musc: Denies: neck pain or back pain Skin/Breast: Denies: rash Neuro: Denies: headache(s) Psych: Denies: depression Rodney/Lymph: Denies: easy bruising All/Imm: Denies: urticaria PFSH ED PFSH: Medical History Chronic fatigue and malaise Fibromyalgia History of ectopic History of hypothyroidism Menorrhagia with regular cycle Vitamin B12 deficiency Vitamin D deficiency Surgical History History of section (08/10/14) Low transverse section. Performed by Dr. Pedro Stack at [facility] in [place], [place]. History of reversal of tubal ligation (07/2001) Hx of gastric bypass August 2020 Hx of tubal ligation (12/17/99) Status post hysteroscopic polypectomy (03/06/11) Hysteroscopy, D&C, Polypectomy Performed by Dr. Pedro Stack at [facility] in [place], [place]. Family History Mother Hypercholesteremia Family/Other No problems noted. Denies family history of Colon cancer Ovarian cancer Diabetes Breast cancer Hypertension Uterine cancer Thyroid disease Stroke Social History Smoking and tobacco status: former smoker Second hand smoke exposure: No Smoking risk assessment/counseling performed?: No Alcohol intake: never Desire information about alcohol rehabilitation?: No Counseling given: No Desire information about substance/drug rehabilitation?: No Counseling given: No Adopted: No Caregiver/support person: No Lives independently: Yes History of recent travel: No Physical Exam Const: COMMON NORMALS: no acute distress, patient oriented x3 and healthy appearing HENMT: COMMON NORMALS: normocephalic and atraumatic HEAD & SCALP: normocephalic and atraumatic Eye: COMMON NORMALS: Equal, round and reactive pupils present and EOMs intact bilaterally PUPIL: Yes Equal, round and reactive pupils present Neck/C-Spine: COMMON NORMALS: full ROM and supple Chest: COMMONS NORMALS: normal inspection of the chest and normal palpation of entire chest wall Resp: COMMON NORMALS: normal respiratory effort, No retractions, No use of accessory muscles and clear to auscultation bilaterally AUSCULTATION: clear to auscultation bilaterally Cardio: COMMON NORMALS: regular rate, regular rhythm and No murmurs present (Cardio) RATE: regular rate RHYTHM: regular rhythm GI: COMMON NORMALS: Normal to inspection, nondistended, normoactive bowel sounds present, Soft to palpation, non-tender and no masses PALPATION: Yes Soft to palpation Extremity: COMMON NORMALS: normal to inspection and full ROM Neuro: COMMON NORMALS: patient oriented x3, moves all extremities and no focal motor deficits Psych: COMMON NORMALS: mental status grossly normal, Normal thought process present and cooperative THOUGHT PROCESS: Normal thought process present Skin: COMMON NORMALS: no rashes or lesions noted and no wounds GENERAL SKIN EXAM: no rashes or lesions noted Course Vital Signs: Vital signs: Vital Signs Temperature 98.1 F 08/20/22 11:58 Pulse Rate 84 08/20/22 12:28 Respiratory Rate 18 08/20/22 12:28 Blood Pressure 131/95 08/20/22 12:28 Pulse Oximetry 100 08/20/22 12:28 Oxygen Delivery Me thod 08/20/22 12:28 MDM - Abdominal Pain Medical Decision Making Patient presents with abdominal pain CT scan here is normal her blood work is normal she feels improved she is stable for discharge she is to follow-up PCP and return if worsening. Lab Data : 08/20/22 13:03 08/20/22 13:03 Labs/Radiology: Radiology Impressions Abdomen/Pelvis CT 08/20/22 12:13 IMPRESSION: 1. Interval postoperative changes cholecystectomy. Expected postoperative changes with a small amount of fluid in the gallbladder fossa. 2. Common bile duct appears to taper normally distally. 3. Hepatomegaly with splenomegaly. 4. No hydronephrosis in either kidney. 5. Urine distended bladder with small amount of free fluid in the pelvis. 6. Moderate sigmoid and pancolonic constipation. A few air-fluid levels in small bowel likely due to postoperative ileus 7. Prior gastric bypass surgery. 8. No other acute appearing findings. Laboratory Results WBC 10.7 10^3/uL (4.0-10.0) H 08/20/22 13:03 RBC 4.42 10^6/uL (4.1-5.3) 08/20/22 13:03 Hgb 13.8 g/dL (11.5-15.3) 08/20/22 13:03 Hct 41.4 % (37.0-47.0) 08/20/22 13:03 MCV 93.7 fl (81-99) 08/20/22 13:03 MCH 31.2 pg (28.0-34.0) 08/20/22 13:03 MCHC 33.3 g/dL (30.0-36.0) 08/20/22 13:03 RDW 12.6 % (12.1-15.1) 08/20/22 13:03 Plt Count 369 10^3/cmm (130-400) 08/20/22 13:03 MPV 9.5 fL (7.4-10.4) 08/20/22 13:03 Neut % (Auto) 85.3 % 08/20/22 13:03 Lymph % (Auto) 7.9 % 08/20/22 13:03 [place] % (Auto) 5.8 % 08/20/22 13:03 Eos % (Auto) 0.3 % 08/20/22 13:03 Baso % (Auto) 0.3 % 08/20/22 13:03 Neut # (Auto) 9.14 10^3/uL (1.8-7.7) H 08/20/22 13:03 Lymph # (Auto) 0.8 10^3/uL (0.8-4.8) 08/20/22 13:03 [place] # (Auto) 0.6 10^3/uL (0.2-0.9) 08/20/22 13:03 Eos # (Auto) 0.0 10^3/uL (0.0-0.8) 08/20/22 13:03 Baso # (Auto) 0.0 10^3/uL (0.0-0.1) 08/20/22 13:03 Nucleated RBC % (auto) 0 % 08/20/22 13:03 Nucleated RBCs # 0.0 /100WBC 08/20/22 13:03 Sodium 137 mmol/L (136-145) 08/20/22 13:03 Potassium 3.4 mmol/L (3.5-5.1) L 08/20/22 13:03 Chloride 103 mmol/L (98-107) 08/20/22 13:03 Carbon Dioxide 22 mmol/L (22-29) 08/20/22 13:03 Anion Gap 15.4 (5-19) 08/20/22 13:03 BUN 14 mg/dL (6-20) 08/20/22 13:03 Creatinine 0.5 mg/dL (0.5-0.9) 08/20/22 13:03 GFR Calculation 133.4 mL/min (90-130) H 08/20/22 13:03 Glucose 96 mg/dL (65-115) 08/20/22 13:03 Calculated Osmolality 284 mOsm/kg (285-295) L 08/20/22 13:03 Calcium 9.3 mg/dL (8.5-10.5) 08/20/22 13:03 Total Bilirubin 0.8 mg/dL (0.15-1.2) 08/20/22 13:03 AST 16 U/L (0-32) 08/20/22 13:03 ALT 17 U/L (0-33) 08/20/22 13:03 Alkaline Phosphatase 155 U/L (35-105) H 08/20/22 13:03 Total Protein 7.4 g/dL (6.6-8.7) 08/20/22 13:03 Albumin 4.5 g/dL (3.5-5.2) 08/20/22 13:03 Globulin 2.9 g/dL (1.3-4.6) 08/20/22 13:03 Lipase 16 U/L (13-60) 08/20/22 13:03 Discharge Plan Discharge Patient Disposition: Home Clinical Impression: Abdominal pain Condition: Stable Prescriptions: No Action multivitamin Tablet 1 tab PO BEDTIME cyanocobalamin (vitamin B-12) 1,000 mcg capsule 1,000 mcg PO DAILY rizatriptan [Maxalt] 10 mg tablet See Rx Instructions PO .COMPLEX Qty: 10 5RF Rx Instructions: take 1 tab at onset of headache; if no relief may repeat 1 tab after at least 2 hrs; max = 3 tabs/24 hr PO bupropion HCl 150 mg tablet extended release 24 hr 450 mg PO QAM Qty: 90 2RF Rx Instructions: 340B slippery elm bark 400 mg Capsule 1,200 mg PO DAILY vitamin E 1,000 unit Capsule 1,000 unit PO DAILY Vitamin C 500 mg Tablet 500 mg PO DAILY Protonix 40 mg Tablet,Delayed Release (Dr/Ec) 40 mg PO QAM Calcium 600 + D(3) 600 mg-10 mcg (400 unit) Tablet 1 tab PO BID@10,15 ferrous sulfate 140 mg (45 mg iron) Tablet Extended Release 45 mg PO BEDTIME Collagen Tabs 3 tab PO QAM Discharge Orders: Discharge ED (Routine); Ordered 08/20/22 Ordered By: Whit Hernandez Discharge Diet: Advance as tolerated Discharge Activity: Resume usual activity Patient Instructions: Abdominal Pain (ED) Coding Level of Care Code ED [employer] T[employer] Net for Bee Fwd Exam Comprehensive
[2022-08-20 13:10] LABS: Basophils % 0.3 %; Eosinophils % 0.3 %; Hematocrit 41.4 % (37.0-47.0); Hemoglobin 13.8 g/dL (11.5-15.3); Lymphocytes # 0.8 10^3/uL (0.8-4.8); Lymphocytes % 7.9 %; Mean Corpuscular HGB Conc 33.3 g/dL (30.0-36.0); Mean Corpuscular Hemoglobin 31.2 pg (28.0-34.0); Mean Corpuscular Volume 93.7 fl (81-99); Mean Platelet Volume 9.5 fL (7.4-10.4); Monocytes # 0.6 10^3/uL (0.2-0.9); Monocytes % 5.8 %; Neutrophils # 9.14 10^3/uL (1.8-7.7); Neutrophils % 85.3 %; Nucleated Red Blood Cells % 0 %; Platelet Count 369 10^3/cmm (130-400); Red Blood Count 4.42 10^6/uL (4.1-5.3); Red Cell Distribution Width 12.6 % (12.1-15.1); White Blood Count 10.7 10^3/uL (4.0-10.0)
[2022-08-20] MEDS: iohexol 350 mg/mL 100 mL Btl IV (13:19)
[2022-08-20 13:34] VITALS: BP 131/90; PULSE 75; RESP 20; O2SAT 100
[2022-08-20 13:34] LABS: Alanine Aminotransferase 17 U/L (0-33); Albumin Level 4.5 g/dL (3.5-5.2); Alkaline Phosphatase 155 U/L (35-105); Anion Gap 15.4 (5-19); Aspartate Amino Transferase 16 U/L (0-32); Blood Urea Nitrogen 14 mg/dL (6-20); Calcium 9.3 mg/dL (8.5-10.5); Carbon Dioxide 22 mmol/L (22-29); Chloride 103 mmol/L (98-107); Globulin 2.9 g/dL (1.3-4.6); Glomerular Filtration Rate 133.4 mL/min (90-130); Glucose 96 mg/dL (65-115); Lipase 16 U/L (13-60); Osmolality Calculated 284 mOsm/kg (285-295); Potassium 3.4 mmol/L (3.5-5.1); Sodium 137 mmol/L (136-145); Total Bilirubin 0.8 mg/dL (0.15-1.2); Total Protein 7.4 g/dL (6.6-8.7)
[2022-08-20 14:00] VITALS: BP 139/88; PULSE 66; RESP 20; O2SAT 100
== END 2022-08-20 14:47 | disposition home or self-care (01) ==
PROVIDERS: Emergency Provider Emergency Medicine
DX: R10.9 Unspecified abdominal pain (principal); Z87.891 Personal history of nicotine dependence
CPT/HCPCS: 36415; 74177; 80053; 83690; 85025; 96374; 99285; J2405; J7030; Q9967

== ENCOUNTER → 2022-08-26 10:22 | Outpatient (BNVA) | payer BC, SELFPAY | PROVIDERS: Visit Provider Nurse Practitioner Family | DX: R53.83 Other fatigue (principal); R63.0 Anorexia; F41.9 Anxiety disorder, unspecified; R59.0 Localized enlarged lymph nodes | CPT/HCPCS: 80053; 84443; 85025 ==

== ENCOUNTER → 2022-09-02 15:52 | Outpatient (BNVA) | payer BC, SELFPAY | PROVIDERS: Visit Provider Nurse Practitioner Family | DX: R39.9 Unspecified symptoms and signs involving the genitourinary system (principal); R53.83 Other fatigue; R59.0 Localized enlarged lymph nodes; R00.2 Palpitations | CPT/HCPCS: 80053; 81000; 84439; 84443; 84481 ==

== ENCOUNTER 2022-09-08 13:35 | Outpatient (CLI) | payer BC, SELFPAY ==
--- NOTE | 2022-09-08 14:30 | US_ITS ---
WS: [id number] THYROID ULTRASOUND HISTORY: R59.0 - Localized enlarged lymph nodes COMPARISON: None available. Right lobe: 1.7 cm x 1.6 cm x 6.2 cm (w x ap x l). Volume: 9.0 cm3. Normal size and echotexture. No significant are dominant nodules are present. Left lobe: 1.6 cm x 1.2 cm x 5.5 cm (w x ap x l). Volume: 5.6 cm3. Normal size and echotexture. No significant or dominant nodules are present. Isthmus: 0.2 cm. Small cervical chain lymph nodes. No lymphadenopathy. US/US thyroid [id number] IMPRESSION: Normal thyroid ultrasound.
== END 2022-09-08 13:36 | disposition home or self-care (01) ==
LOC: RAD 13:36
PROVIDERS: PCP Nurse Practitioner Family; Visit Provider Nurse Practitioner Family
DX: R59.0 Localized enlarged lymph nodes (principal)
CPT/HCPCS: 76536

== ENCOUNTER → 2022-09-29 08:41 | Outpatient (BNVA) | payer BC, SELFPAY | PROVIDERS: PCP Nurse Practitioner Family; Visit Provider Nurse Practitioner Family | DX: M62.81 Muscle weakness (generalized) (principal); R22.1 Localized swelling, mass and lump, neck; I49.3 Ventricular premature depolarization; F41.9 Anxiety disorder, unspecified | CPT/HCPCS: 85651; 86141; 86160; 86162; 86235; 86255; 86376; 86431 ==

== ENCOUNTER 2022-11-11 09:18 | Outpatient (CLI) | payer BC, SELFPAY ==
--- NOTE | 2022-11-11 09:30 | CT_ITS ---
WS: [id number] CT NECK TECHNIQUE: Contrast-enhanced CT of the neck with coronal and sagittal reformatted images. CLINICAL INFORMATION: mass on neck COMPARISON: None. DLP: 156.[address] scans at [facility] use at least one of these dose optimization techniques: automated e xposure control; mA and/or kV adjustment per patient size (includes targeted exams where dose is matc hed to clinical indication); or iterative reconstruction. FINDINGS: Palpable marker LEFT lower neck. Normal subcutaneous vein in this area due to the palpable marker. No evidence of pathologic mass or lesion. Normal underlying sternocleidomastoid. Partially visualized mastoid air cells well aerated. Normal paranasal sinuses. Small retention cyst R IGHT maxillary sinus. Normal posterior nasopharynx. Normal parapharyngeal fat. Normal submandibular g lands. Normal parotid glands. No evidence of supraglottic or glottic mass. Normal subglottic airway. Thyroid gland is normal. Fibrosis in the lung apices. No cervical lymphadenopathy. CT/CT neck w con* [id number] IMPRESSION: 1. Normal subcutaneous vein deep to the palpable marker LEFT neck. No evidence of pathologic mass or lesion. 2. Salivary glands are normal. 3. No cervical lymphadenopathy. 4. No evidence of supraglottic or glottic mass. 5. Normal thyroid gland.
[2022-11-11] MEDS: iohexol 350 mg/mL 500 mL Btl (per mL) IV (09:45)
== END 2022-11-11 09:19 | disposition home or self-care (01) ==
LOC: RAD 09:20
PROVIDERS: PCP Nurse Practitioner Family; Visit Provider Otolaryngology
DX: R22.1 Localized swelling, mass and lump, neck (principal)
CPT/HCPCS: 70491; Q9967

== ENCOUNTER → 2023-01-06 08:52 | Outpatient (BNVA) | payer BC, SELFPAY | PROVIDERS: PCP Nurse Practitioner Family; Visit Provider Nurse Practitioner Family | DX: G89.29 Other chronic pain (principal); R53.82 Chronic fatigue, unspecified; R20.2 Paresthesia of skin | CPT/HCPCS: 82306; 82607; 83540; 83735 ==

== ENCOUNTER → 2023-01-21 10:07 | Outpatient (BNVA) | payer BC, SELFPAY | PROVIDERS: PCP Nurse Practitioner Family; Visit Provider Internal Medicine Rheumatology | DX: Z79.899 Other long term (current) drug therapy (principal); M19.90 Unspecified osteoarthritis, unspecified site | CPT/HCPCS: 36415; 82085; 82306; 82550; 85651; 86140; 86200 ==

== ENCOUNTER 2023-06-22 03:23 | Emergency (ER) | payer BC, SELFPAY ==
[2023-06-22 03:24] VITALS: BP 126/89; PULSE 75; RESP 16; TEMP 36.6; O2SAT 100; BMI 22.4
[2023-06-22 03:34] VITALS: BP 125/89; PULSE 78; RESP 16; O2SAT 100
--- NOTE | 2023-06-22 03:47 | ECG_ITS ---
[facility] Test Date: 2023-06-22 Pat Name: Emelia Aguilar Department: Room: Gender: Female Capacity Analyst: : 1975 Requested By: Whit Hernandez Order Number: [id number] Aster MD: Aryan Vega M.D. Measurements Intervals Ava Rate: 65 P: 9 DE: 118 QRS: 63 QRSD: 86 T: 60 QT: 423 QTc: 440 Interpretive Statements SINUS RHYTHM WITH SHORT DE INTERVAL Compared to ECG 04/18/2022 23:26:07 Short DE interval now present Electronically Signed On 06-22-2023 17:35:02 CDT by Aryan Vega M.D. [id number]
--- NOTE | 2023-06-22 04:12 | ED_ITS ---
HPI - Neck Pain/Injury General: Chief Complaint: Neck Pain/Injury Stated Complaint: NECK PAIN Time Seen by Provider: 06/22/23 03:24 Source: patient Mode of arrival: ambulatory Limitations: no limitations History of Present Illness: 47-year-old female states been having left-sided neck pain for over a year. She is been seen multiple times she has had ultrasounds and CTs is followed with ENT had no findings states that tonight started having pain again felt like she had swelling in her left neck she stated went to her shoulder she became anxious about it. Denies any difficulty swallowing denies any shortness of breath. Associated symptoms: Denies headache(s) or nausea Review of Systems Const: Denies: fever(s), chills, body aches or change in appetite ENMT: Denies: throat pain or dental pain Card: Denies: chest pain Resp: Denies: dyspnea GI: Denies: abdominal pain, nausea, vomiting or diarrhea Musc: Reports: neck pain; Denies: back pain Skin/Breast: Denies: rash Neuro: Denies: headache(s) PFSH ED PFSH: Medical History Anxiety Chronic fatigue and malaise Fibromyalgia History of ectopic History of hypothyroidism Left leg weakness Menorrhagia with regular cycle Peripheral neuropathy Raised antibody titer Vitamin B12 deficiency Vitamin D deficiency Surgical History History of section (08/10/14) Low transverse section. Performed by Dr. Pedro Stack at [facility] in [place], [place]. History of reversal of tubal ligation (07/2001) Hx of gastric bypass August 2020 Hx of tubal ligation (12/17/99) Status post hysteroscopic polypectomy (03/06/11) Hysteroscopy, D&C, Polypectomy Performed by Dr. Pedro Stack at [facility] in [place], [place]. Family History Mother Hypercholesteremia Family/Other No problems noted. Denies family history of Colon cancer Ovarian cancer Diabetes Breast cancer Hypertension Uterine cancer Thyroid disease Stroke Social History Smoking and tobacco status: never smoked Alcohol intake: current Alcohol intake frequency: holidays/special occasions only Alcohol type: wine Substance/Drug Use: never Do you think of yourself as: Straight/Heterosexual Female Reproductive History: Date of last menstrual period: 05/23/23 Physical Exam Const: COMMON NORMALS: no acute distress, patient oriented x3 and healthy appearing HENMT: COMMON NORMALS: normocephalic and atraumatic HEAD & SCALP: normocephalic and atraumatic Neck/C-Spine: COMMON NORMALS: full ROM and supple OTHER: No masses noted no tenderness Chest: COMMONS NORMALS: normal inspection of the chest Resp: COMMON NORMALS: normal respiratory effort Cardio: COMMON NORMALS: regular rate, regular rhythm and No murmurs present (Cardio) RATE: regular rate RHYTHM: regular rhythm GI: INSPECTION: Yes normal to inspection Extremity: COMMON NORMALS: normal to inspection and full ROM Neuro: COMMON NORMALS: patient oriented x3, moves all extremities and no focal motor deficits Psych: COMMON NORMALS: mental status grossly normal, Normal thought process present and cooperative THOUGHT PROCESS: Normal thought process present Skin: COMMON NORMALS: no rashes or lesions noted and no wounds GENERAL SKIN EXAM: no rashes or lesions noted Course Vital Signs: Vital signs: Vital Signs Temperature 97.8 F 06/22/23 04:26 Pulse Rate 78 06/22/23 04:26 Respiratory Rate 16 06/22/23 04:26 Blood Pressure 125/89 06/22/23 04:26 Pulse Oximetry 100 06/22/23 04:26 MDM - Neck Pain/Injury Medical Decision Making Patient with a neck pain has been going on for years she is well-appearing here exam here is benign she has no notable swelling no difficulty swallowing she is to follow-up with her ENT return if worsening she understands agrees to plan. Discharge Plan Discharge Patient Disposition: Home Clinical Impression: Neck pain Condition: Stable Prescriptions: No Action multivitamin Tablet 1 tab PO BEDTIME cyanocobalamin (vitamin B-12) 1,000 mcg capsule 1,000 mcg PO DAILY rizatriptan [Maxalt] 10 mg tablet See Rx Instructions PO .COMPLEX Qty: 10 5RF Rx Instructions: take 1 tab at onset of headache; if no relief may repeat 1 tab after at least 2 hrs; max = 3 tabs/24 hr PO propranolol 20 mg tablet 20 mg PO TID PRN (Reason: heart rate) Qty: 90 2RF venlafaxine [Effexor XR] 75 mg capsule,extended release 24hr 75 mg PO DAILY Qty: 30 0RF slippery elm bark 400 mg Capsule 1,200 mg PO DAILY vitamin E 1,000 unit Capsule 1,000 unit PO DAILY Vitamin C 500 mg Tablet 500 mg PO DAILY Protonix 40 mg Tablet,Delayed Release (Dr/Ec) 40 mg PO QAM Calcium 600 + D(3) 600 mg-10 mcg (400 unit) Tablet 1 tab PO BID@10,15 ferrous sulfate 140 mg (45 mg iron) Tablet Extended Release 45 mg PO BEDTIME Collagen Tabs 3 tab PO QAM Discharge Orders: Discharge ED (Routine); Ordered 06/22/23 Ordered By: Whit Hernandez Referrals: Devorah Kwok FNP-C [Primary Care Provider] - El Darden MD [Physician] - 1-3 days Discharge Diet: Advance as tolerated Discharge Activity: Resume usual activity Patient Instructions: Neck Pain (ED) Coding Level of Care Code ED [facility] Center Coordinator for Bee Proctor
[2023-06-22 04:26] VITALS: BP 125/89; PULSE 78; RESP 16; TEMP 36.6; O2SAT 100
== END 2023-06-22 04:27 | disposition home or self-care (01) ==
PROVIDERS: Emergency Provider Emergency Medicine; PCP Nurse Practitioner Family
DX: M54.2 Cervicalgia (principal)
CPT/HCPCS: 93005; 99283

== ENCOUNTER 2024-06-30 19:56 | Emergency (ER) | payer BC, SELFPAY ==
--- NOTE | 2024-06-30 20:09 | XRR_ITS ---
PROCEDURE INFORMATION: Exam: XR Chest Exam date and time: 06/30/2024 8:21 PM Age: 48 years old Clinical indication: Pain; Chest pressure; Patient HX: Chest tightness; N/v; Dizziness; Anxiety TECHNIQUE: Imaging protocol: Radiologic exam of the chest. Views: 1 view. COMPARISON: CR XR chest 1V portable [id number] 04/18/2022 10:21 PM FINDINGS: Lungs: Unremarkable. No consolidation. Pleural spaces: Unremarkable. No pleural effusion. No pneumothorax. Heart/Mediastinum: Unremarkable. No cardiomegaly. Bones/joints: Unremarkable. XR/XR chest 1V portable [id number] IMPRESSION: No acute findings.
[2024-06-30 20:15] VITALS: BP 138/92; PULSE 78; RESP 18; TEMP 36.3; O2SAT 95
--- NOTE | 2024-06-30 20:16 | ECG_ITS ---
"[facility] Test Date: 2024-06-30 Pat Name: Emelia Aguilar Department: Room: Gender: Female Coding Compliance Auditor: : 1975 Requested By: Sven Chin Order Number: [id number] Aster MD: Aryan Vega M.D. Measurements Intervals [place] Rate: 74 P: 72 HI: 144 QRS: 36 QRSD: 93 T: 29 QT: 388 QTc: 431 Interpretive Statements SINUS RHYTHM Compared to ECG 06/22/2023 04:10:22 Short HI interval no longer present Electronically Signed On 07-01-2024 6:59:29 CDT by Aryan Vega M.D. [id number]"
--- NOTE | 2024-06-30 20:32 | ED_ITS ---
HPI - Nausea/Vomiting/Diarrhea 2 General: Chief complaint: Nausea/Vomiting/Diarrhea Stated complaint: Chest Tightness, N/V, Dizzy Time Seen by Provider: 06/30/24 20:07 Source: patient Mode of arrival: EMS Limitations: no limitations History of Present Illness: Patient is a 48-year-old female presenting to the emergency department by ambulance for epigastric pain onset today. Patient states that she had sudden onset of acute epigastric pain radiating to her left arm a few hours prior to arrival, this is since resolved after taking a total of 324 mg of baby aspirin as well as being given Zofran and Phenergan in the ambulance. She reports that she does not have a history of anxiety, however has had 1 similar episode like this in the past where she was diagnosed with this. No cardiac history. She did note that she did have some associated chest tightness and felt dizzy, however states that she thinks she may have eaten a bad cheeseburger prior to her symptoms. She states she is asymptomatic at this time. She is on Protonix daily. No shortness of breath, vomiting, bowel changes, urinary symptoms, or other symptoms at this time. MD elicited complaint: abdominal pain Onset (ago): hour(s) Associated nausea: No Radiation: other (Left arm) Pain consistency: now resolved Exacerbating factors: none Relieving factors: none Associated symtoms: Reports chest pain and dizziness; Denies bloating, diaphoresis, dysuria, headache(s), nausea or palpitations Review of Systems 2 General: Reports: 10 or more systems reviewed and unremarkable except in HPI and below Const: Denies: fever(s), chills, change in appetite, change in weight or diaphoresis ENMT: Denies: throat pain or hoarseness Card: Reports: chest pain; Denies: palpitations or lightheadedness Resp: Denies: dyspnea, productive cough or wheezing GI: Reports: abdominal pain; Denies: nausea, vomiting, diarrhea, constipation, bloating, change in stool character or hematochezia : Denies: flank pain, difficulty voiding, dysuria, urinary frequency or urinary urgency Musc: Denies: neck pain or back pain Skin/Breast: Denies: rash or new lesions Neuro: Reports: dizziness; Denies: headache(s) PFSH ED 2 PFSH: Medical History Peripheral neuropathy Raised antibody titer Left leg weakness Anxiety Vitamin B12 deficiency Chronic fatigue and malaise Vitamin D deficiency Fibromyalgia Menorrhagia with regular cycle History of hypothyroidism History of ectopic Surgical History Hx of tubal ligation (12/17/99) History of reversal of tubal ligation (07/2001) History of section (08/10/14) Low transverse section. Performed by Dr. Pedro Stack at [facility] in [place], [place]. Status post hysteroscopic polypectomy (03/06/11) Hysteroscopy, D&C, Polypectomy Performed by Dr. Pedro Stack at [facility] in [place], [place]. Hx of gastric bypass August 2020 Family History Mother Hypercholesteremia Family/Other No problems noted. Denies family history of Colon cancer Ovarian cancer Diabetes Breast cancer Hypertension Uterine cancer Thyroid disease Stroke Social History Smoking and tobacco/nicotine status: never used tobacco/nicotine Alcohol intake: current Alcohol intake frequency: holidays/special occasions only Alcohol type: wine Substance/Drug Use: never Do you think of yourself as: Straight/Heterosexual Physical Exam 2 Const: COMMON NORMALS: no acute distress, average body habitus, patient oriented x3, no limitations, healthy appearing, alert and well nourished G ENERAL APPEARANCE: cooperative and anxious ORIENTATION/CONSCIOUSNESS: Yes awake OTHER: Patient noticed to be fidgeting in bed HENMT: COMMON NORMALS: normocephalic, atraumatic, hearing grossly normal bilaterally, external ears normal, Normal external nose present, Normal nasal mucous membranes and turbinates present and moist oral mucous membranes HEAD & SCALP: normocephalic and atraumatic NOSE: Normal external nose present and Normal nasal mucous membranes and turbinates present EXTERNAL EAR: Yes external ears normal Eye: COMMON NORMALS: Equal, round and reactive pupils present, EOMs intact bilaterally, conjunctivae normal and normal visual rodriguez by confrontation C ONJUNCTIVA: Yes conjunctivae normal PUPIL: Yes Equal, round and reactive pupils present Neck/C-Spine: COMMON NORMALS: full ROM, supple, no meningeal signs and no JVD Resp: COMMON NORMALS: normal respiratory effort, No retractions, No use of accessory muscles and clear to auscultation bilaterally AUSCULTATION: clear to auscultation bilaterally, no crackles, no rales, no rhonchi and no wheezes Cardio: COMMON NORMALS: no JVD, regular rate, regular rhythm, S1 normal heart sound present, S2 normal heart sound present, No gallops present (Cardio), No clicks present (Cardio), No murmurs present (Cardio), No rub (Cardio) and Peripheral pulses 2+ throughout RATE: regular rate RHYTHM: regular rhythm HEART SOUNDS: S1 normal heart sound present and S2 normal heart sound present PERIPHERAL PULSES: Peripheral pulses 2+ throughout GI: COMMON NORMALS: Normal to inspection, nondistended, normoactive bowel sounds present, Soft to palpation, non-tender, No hepatosplenomegaly present and no masses AUSCULTATION: Yes normoactive bowel sounds PALPATION: Yes Soft to palpation, No Guarding due to palpation present (GI), No Rigid due to palpation and Yes No hepatosplenomegaly present RECTAL EXAM: deferred : COMMON NORMALS: Yes no CVA tenderness BLADDER/KIDNEY EXAM: Yes no CVA tenderness Back/Pelvis: COMMON NORMALS: no CVA tenderness Extremity: COMMON NORMALS: normal to inspection and full ROM Neuro: COMMON NORMALS: patient oriented x3, moves all extremities, no focal motor deficits and no sensory deficits noted SENSORIUM/ORIENTATION: Yes alert MENINGEAL SIGNS: Yes no meningeal signs Psych: COMMON NORMALS: mental status grossly normal, cooperative and speech normal SPEECH: Yes normal speech Skin: COMMON NORMALS: no rashes or lesions noted GENERAL SKIN EXAM: no rashes or lesions noted Course 2 Vital Signs: Vital signs: Vital Signs Temperature 97.4 F L 06/30/24 20:15 Pulse Rate 78 06/30/24 20:15 Respiratory Rate 18 06/30/24 20:15 Blood Pressure 138/92 06/30/24 20:15 Pulse Oximetry 95 06/30/24 20:15 Oxygen Delivery Me thod Room Air 06/30/24 20:15 MDM - Nausea/Vomiting/Diarrhea Medical Decision Making Patient brought in by ambulance for epigastric pain for a couple of hours earlier today, since resolved. Was given Zofran and Phenergan and route and did receive 324 mg total of baby aspirin. No cardiac history. Patient does appear very anxious on exam and is fidgeting. Though she denies any history of anxiety does not take anything for this. Her initial EKG was reviewed with Dr. Espinosa and was unremarkable, showing normal sinus rhythm rate 74 with no acute STEMI. Chest x-ray unremarkable. All of her labs including troponin, urinalysis, and urine drug screen were all negative. I do believe that today's episode was likely flareup of her diagnosed acid reflux associated with, or potentially exacerbated by a panic episode. Because of this I told her to follow-up with primary care early next week for further evaluation. She is given strict return precautions in the meantime and states she wants to go home at this time. Lab Data 06/30/24 20:33 06/30/24 20:33 Laboratory Results WBC 7.92 10^3/uL (3.29-11.43) 06/30/24 20: RBC 4.60 10^6/uL (3.85-5.65) 06/30/24 20:33 Hgb 14.00 g/dL (11.27-16.99) 06/30/24 20:33 Hct 42.8 % (36-47) 06/30/24 20: MCV 93.0 fl (85-98) 06/30/24 20: MCH 30.4 pg (27-33) 06/30/24 20: MCHC 32.7 g/dL (30-55) 06/30/24 20:33 RDW 12.0 % (12.1-15.1) L 06/30/24 20: Plt Count 331 10^3/cmm (157-399) 06/30/24 20: MPV 9.4 fL (7.4-10.4) 06/30/24 20: Neut % (Auto) 78.7 % 06/30/24 20: Lymph % (Auto) 11.0 % 06/30/24 20:33 Ceiba % (Auto) 8.0 % 06/30/24 20:33 Eos % (Auto) 1.5 % 06/30/24 20: Baso % (Auto) 0.5 % 06/30/24 20:33 Neut # (Auto) 6.24 10^3/uL (1.8-7.7) 06/30/24 20:33 Lymph # (Auto) 0.9 10^3/uL (0.8-4.8) 06/30/24 20:33 [place] # (Auto) 0.6 10^3/uL (0.2-0.9) 06/30/24 20:33 Eos # (Auto) 0.1 10^3/uL (0.0-0.8) 06/30/24 20:33 Baso # (Auto) 0.0 10^3/uL (0.0-0.1) 06/30/24 20:33 Nucleated RBC % (auto) 0 % 06/30/24 20: Nucleated RBCs # 0.0 /100WBC 06/30/24 20:33 Sodium 139 mmol/L (136-145) 06/30/24 20:33 Potassium 3.5 mmol/L (3.5-5.1) 06/30/24 20:33 Chloride 101 mmol/L (98-107) 06/30/24 20:33 Carbon Dioxide 25 mmol/L (22-29) 06/30/24 20:33 Anion Gap 16.5 (5-19) 06/30/24 20:33 BUN 10 mg/dL (6-20) 06/30/24 20:33 Creatinine 0.6 mg/dL (0.5-0.9) 06/30/24 20:33 GFR Calculation 107.2 mL/min (90-130) 06/30/24 20:33 Glucose 115 mg/dL (65-115) 06/30/24 20:33 Calculated Osmolality 288 mOsm/kg (285-295) 06/30/24 20:33 Calcium 9.8 mg/dL (8.5-10.5) 06/30/24 20:33 Total Bilirubin 0.4 mg/dL (0.15-1.2) 06/30/24 20:33 AST 33 U/L (0-32) H 06/30/24 20:33 ALT 24 U/L (0-33) 06/30/24 20:33 Alkaline Phosphatase 97 U/L (35-105) 06/30/24 20:33 Troponin T Baseline 10 ng/L (0-10) 06/30/24 20:33 Total Protein 8.0 g/dL (6.6-8.7) 06/30/24 20:33 Albumin 4.9 g/dL (3.5-5.2) 06/30/24 20:33 Globulin 3.1 g/dL (1.3-4.6) 06/30/24 20:33 Lipase 18 U/L (13-60) 06/30/24 20:33 Urine Color Yellow (Yellow) 06/30/24 20:37 Urine Appearance Clear (CLEAR) 06/30/24 20:37 Urine pH 7.5 (5-7) 06/30/24 20:37 Ur Specific [place] 1.007 (1.005-1.030) 06/30/24 20:37 Urine Protein Negative (Negative) 06/30/24 20:37 Urine Glucose (UA) Negative (Normal) 06/30/24 20:37 Urine Ketones Trace (Negative) 06/30/24 20:37 Urine Blood 1+ (Negative) A 06/30/24 20:37 Urine Nitrate Negative (Negative) 06/30/24 20:37 Urine Bilirubin Negative (Negative) 06/30/24 20:37 Urine Urobilinogen 1.0 mg/dL (Negative) 06/30/24 20:37 Ur Leukocyte Esterase Negative (Negative) 06/30/24 20:37 Urine RBC 0-2 /hpf (0-2) 06/30/24 20:37 Urine WBC 0-5 /hpf (0-5) 06/30/24 20:37 Ur Squamous Epith Cells 6-10 /hpf (0-5) 06/30/24 20:37 Amorphous Sediment Not Reportable 06/30/24 20:37 Urine Bacteria None seen /hpf (NONE) 06/30/24 20:37 Hyaline Casts 0.81 /lpf 06/30/24 20:37 Urine Opiates Screen Negative ng/mL (Negative) 06/30/24 20:37 Ur Barbiturates Screen Negative ng/mL (Negative) 06/30/24 20:37 Ur Phencyclidine Scrn Negative ng/mL (Negative) 06/30/24 20:37 Ur Amphetamines Screen Negative ng/mL (Negative) 06/30/24 20:37 U Benzodiazepines Scrn Negative ng/mL (Negative) 06/30/24 20:37 Urine Cocaine Screen Negative ng/mL (Negative) 06/30/24 20:37 U Marijuana (THC) Screen Negative ng/mL (Negative) 06/30/24 20:37 XR interpretation done by ED provider, pending radiology final review ED provider radiology interpretation(s): Chest x-ray. No acute cardiopulmonary process. Discharge Plan Discharge Patient Disposition: Home Clinical Impression: Chest pain Qualifiers: Chest pain type: unspecified Qualified Code(s): R07.9 - Chest pain, unspecified Condition: Stable Prescriptions: No Action multivitamin Tablet 1 tab PO BEDTIME cyanocobalamin (vitamin B-12) 1,000 mcg capsule 1,000 mcg PO DAILY rizatriptan [Maxalt] 10 mg tablet See Rx Instructions PO .COMPLEX Qty: 10 5RF Rx Instructions: take 1 tab at onset of headache; if no relief may repeat 1 tab after at least 2 hrs; max = 3 tabs/24 hr PO propranolol 20 mg tablet 20 mg PO TID PRN (Reason: heart rate) Qty: 90 2RF vilazodone [Viibryd] 40 mg tablet 40 mg PO DAILY Qty: 1 0RF Rx Instructions: must administer with a meal/food methylphenidate HCl 27 mg tablet extended release 24hr 27 mg PO DAILY 7 Days Qty: 7 0RF conj estrog-medroxyprogest marcos 0.625-2.5 mg tablet 1 tab PO DAILY Qty: 28 5RF slippery elm bark 400 mg Capsule 1,200 mg PO DAILY vitamin E 1,000 unit Capsule 1,000 unit PO DAILY Vitamin C 500 mg Tablet 500 mg PO DAILY Protonix 40 mg Tablet,Delayed Release (Dr/Ec) 40 mg PO QAM Calcium 600 + D(3) 600 mg-10 mcg (400 unit) Tablet 1 tab PO BID@10,15 ferrous sulfate 140 mg (45 mg iron) Tablet Extended Release 45 mg PO BEDTIME Collagen Tabs 3 tab PO QAM Discharge Orders: Discharge ED (Routine); Ordered 06/30/24 Ordered By: Sven Amaro Referrals: Devorah Kwok FNP-C [Nurse Practitioner] - Discharge Diet: As Directed Discharge Activity: Increase activity as tolerated Patient Instructions: Chest Pain (ED) Activity Restrictions/Additional Instructions: Continue taking your Protonix. Follow-up with primary care early next week as discussed for reevaluation. Please return if you develop any recurrence of pain or other concerning symptoms. Coding Level of Care Code ED Striper Spray Gun for Bee Proctor
[2024-06-30 20:39] LABS: Basophils % 0.5 %; Eosinophils # 0.1 10^3/uL (0.0-0.8); Eosinophils % 1.5 %; Hematocrit 42.8 % (36-47); Lymphocytes # 0.9 10^3/uL (0.8-4.8); Mean Corpuscular HGB Conc 32.7 g/dL (30-55); Mean Corpuscular Hemoglobin 30.4 pg (27-33); Mean Platelet Volume 9.4 fL (7.4-10.4); Monocytes # 0.6 10^3/uL (0.2-0.9); Neutrophils # 6.24 10^3/uL (1.8-7.7); Neutrophils % 78.7 %; Nucleated Red Blood Cells % 0 %; Platelet Count 331 10^3/cmm (157-399); White Blood Count 7.92 10^3/uL (3.29-11.43)
[2024-06-30 20:44] LABS: Charge for UA Resulting for Rev
[2024-06-30 20:48] LABS: Bilirubin Urine Negative (Negative); Blood Urine 1+ (Negative); Glucose Urine UA Negative (Normal); Ketones Urine Trace (Negative); Leukocyte Esterase Urine Negative (Negative); Nitrate Urine Negative (Negative); Protein Urine Negative (Negative); Specific Gravity, Urine 1.007 (1.005-1.030); Urine Appearance Clear (CLEAR); Urine Color Yellow (Yellow); pH Urine 7.5 (5-7)
[2024-06-30 20:53] LABS: Bacteria Urine None Seen /hpf; Hyaline Casts Urine 0.81 /lpf; RBC Urine 0-2 /hpf (0-2); WBC Urine 0-5 /hpf (0-5)
[2024-06-30 20:54] LABS: Amphetamines Screen Urine Negative (Negative); Barbiturates Screen Urine Negative (Negative); Benzodiazepines Screen Urine Negative (Negative); Cocaine Screen Urine Negative (Negative); Opiate Screen Urine Negative (Negative); PCP Screen Urine Negative (Negative); THC Screen Urine Negative (Negative)
[2024-06-30 21:00] LABS: Troponin(5th) Baseline 10 ng/L (0-10)
[2024-06-30 21:02] LABS: Alanine Aminotransferase 24 U/L (0-33); Albumin Level 4.9 g/dL (3.5-5.2); Alkaline Phosphatase 97 U/L (35-105); Anion Gap 16.5 (5-19); Aspartate Amino Transferase 33 U/L (0-32); Blood Urea Nitrogen 10 mg/dL (6-20); Calcium 9.8 mg/dL (8.5-10.5); Carbon Dioxide 25 mmol/L (22-29); Chloride 101 mmol/L (98-107); Globulin 3.1 g/dL (1.3-4.6); Glomerular Filtration Rate 107.2 mL/min (90-130); Glucose 115 mg/dL (65-115); Lipase 18 U/L (13-60); Osmolality Calculated 288 mOsm/kg (285-295); Potassium 3.5 mmol/L (3.5-5.1); Sodium 139 mmol/L (136-145); Total Bilirubin 0.4 mg/dL (0.15-1.2)
[2024-06-30 21:31] VITALS: BP 136/89; PULSE 71; RESP 16; TEMP 36.3; O2SAT 97
== END 2024-06-30 21:32 | disposition home or self-care (01) ==
PROVIDERS: Emergency Provider Physician Assistant; PCP Internal Medicine
DX: R07.9 Chest pain, unspecified (principal)
CPT/HCPCS: 36415; 71045; 80053; 80306; 81003; 81015; 83690; 84484; 85025; 93005; 99285

== ENCOUNTER → 2025-06-12 09:07 | Outpatient (BNVA) | payer BC, SELFPAY | PROVIDERS: PCP Internal Medicine; Visit Provider Family Medicine | DX: Z00.00 Encounter for general adult medical examination without abnormal findings (principal); F41.9 Anxiety disorder, unspecified; F32.A Depression, unspecified; N89.8 Other specified noninflammatory disorders of vagina; R53.82 Chronic fatigue, unspecified; R53.81 Other malaise; Z12.4 Encounter for screening for malignant neoplasm of cervix | CPT/HCPCS: 80053; 80061; 82306; 82607; 83036; 84443; 85025; 88175 ==

== ENCOUNTER 2025-07-12 14:55 | Outpatient (CLI) | payer BC, SELFPAY ==
--- NOTE | 2025-07-12 13:40 | MM_ITS ---
WS: [id number] BILATERAL SCREENING DIGITAL TOMOSYNTHESIS MAMMOGRAM WITH CAD HISTORY: Z12.39 - Encounter for other screening for malignant neop... COMPARISON: None available. Bilateral CC and MLO views with tomosynthesis and synthetic mammography submitted. Computer aided detection analyzed. Breast composition: There are scattered areas of fibroglandular density. No suspicious masses, microcalcifications or architectural distortion. Bilateral skin calcifications. Lymph node retroareolar LEFT breast at middle depth. MM/MM scr BI tomosynthesis [id number] IMPRESSION: BI-RADS: 2 - Benign. FOLLOW UP: 1 Year Follow-up
== END 2025-07-12 14:56 | disposition home or self-care (01) ==
LOC: MOBLMAM 14:57
PROVIDERS: PCP Family Medicine; Visit Provider Family Medicine
DX: Z12.31 Encounter for screening mammogram for malignant neoplasm of breast (principal); R92.323 Mammographic fibroglandular density, bilateral breasts; R92.1 Mammographic calcification found on diagnostic imaging of breast; N63.20 Unspecified lump in the left breast, unspecified quadrant
CPT/HCPCS: 77063; 77067